=== PATIENT | male | born 1985 | race Caucasian/White ===

== ENCOUNTER 2024-10-13 14:22 | Observation (INO) | payer OTHER, SELFPAY ==
[2024-10-13] VITALS (15 sets, daily range): BP systolic 107–118; BP diastolic 64–95; PULSE 55–87; RESP 14–18; TEMP 36.6–36.8; O2SAT 94–99; BMI 30.4; BMI 29.9
--- NOTE | 2024-10-13 14:25 | EKG12_ITS ---
Test Reason : PALPITATIONS Blood Pressure : */* mmHG Vent. Rate : 83 BPM Atrial Rate : * BPM P-R Int : * ms QRS Dur : 86 ms QT Int : 344 ms P-R-T Axes : * -22 -30 degrees QTcB Int : 404 ms Atrial fibrillation Low voltage QRS Inferior infarct , age undetermined Abnormal ECG No previous ECGs available Confirmed by Israel Hennessy ([id number]), newspaper managing editor IQRA TAVERA ([id number]) on 10/19/2024 5:51:00 AM Referred By: Confirmed By: Israel Hennessy
[2024-10-13 14:50] LABS: Absolute Neutrophil Count 4.6 X10^3/uL (2.0-7.7); Basophil# 0.05 X10^3/uL; Basophil% 0.6 % (0-1); Eosinophil# 0.08 X10^3/uL; Eosinophils% 0.9 % (0-5); Hematocrit 53.5 % (40-54); Lymphocyte % 32.8 % (19-41); Mean Corpuscular Hgb 30.8 pg (27.0-32.0); Mean Corpuscular Volume 90.5 fL (80-94); Mean Platelet Vol. 9.5 fl (6.2-12.0); Monocyte# 1.01 X10^3/uL; Monocyte% 11.8 % (0-10); NRBC Flagged by Analyzer 0 % (0-5); Neutrophil # 4.57 X10^3/uL (2.7-7.7); Neutrophil % 53.7 % (47-70); Platelet Count 285 K/mm3 (150-450); RBC Distribution Width CV 13.3 % (11.6-14.6); RBC Distribution Width SD 44.7 fl (35.1-43.9); Red Blood Count 5.91 M/mm3 (4.6-6.2); White Blood Count 8.5 K/mm3 (4.4-11.0)
[2024-10-13 14:55] LABS: Hemoglobin 18.2 g/dL (13.0-16.5)
--- NOTE | 2024-10-13 15:10 | RAD_ITS ---
PROCEDURE: Chest radiographs REASON FOR EXAM: Chest pain TECHNIQUE: Two views of the chest COMPARISON: None. FINDINGS: Cardiomediastinal silhouette is within normal limits. Lungs are clear. No sizable pneumothorax. RAD/Chest PA and Lateral IMPRESSION: No acute airspace abnormality. Reading Location: [facility]
[2024-10-13 15:17] LABS: Anion Gap 8 (5-15); BUN 23 mg/dL (7-18); BUN/Creat Ratio 19.2 RATIO (10-20); Calcium,Total 9.6 mg/dL (8.5-10.1); Chloride 104 mmol/L (98-107); EST Glomerular Filtration Rate 72 mL/min (>60); Est Glom Filt Rate - Afr Amer 87 mL/min (>60); Estimated Creatinine Clearance 107.08 ml/min; Glucose 124 mg/dL (74-106); Potassium 3.9 mmol/L (3.5-5.1); Sodium Level 140 mmol/L (136-145); Troponin-I HS (w/2H Reflex) 4 pg/mL (3.0-78.0)
--- NOTE | 2024-10-13 15:38 | EDS_ITS ---
HPI History of Present Illness Chief Complaint: Palpitations Informant: patient Onset/Context/Timing Onset: Yesterday Context: Sudden Onset Timing: Continuous Quality: Skipping, sharp Location: Left chest Worsened by: Nothing Relieved by: Nothing Narrative Narrative: Patient presents with irregular heartbeat that began last night. Patient states he got out of a hot tub last night at and felt some palpitations. Patient states he feels like his heart is skipping. Patient states he has occasional sharp pain. Patient states it is over the left side of her chest. Patient states nothing makes it better and nothing makes it worse. Patient admits to some nausea but denies any vomiting. Patient admits to some blurry vision. Patient denies any shortness of breath or cough. Patient denies any lower extremity pain or swelling. PFSH PFSH Medical History Obesity Former tobacco use Medical History no medical history no medical history Home Medications ?Medication ?Instructions ?Recorded ?Last Taken ?Type NK 10/13/24 Unknown History Allergy/AdvReac Type Severity Reaction Status Date / Time No Known Allergies Allergy Verified 10/13/24 14:23 Surgical History no surgical history no surgical history Social History Smoking Status: Former smoker ROS ROS ED Constitutional Constitutional ED: Denies chills or fever(s) Eyes Eyes: Reports blurry vision; Denies change in vision ENT ENT ED: Denies rhinorrhea or sore throat Cardiovascular Cardiovascular: Reports chest pain and palpitations Respiratory/Chest Respiratory/Chest: Denies cough or dyspnea Gastrointestinal Gastrointestinal: Reports nausea; Denies vomiting Genitourinary Genitourinary ED: Denies dysuria or hematuria Musculoskeletal Musculoskeletal: Denies back pain or neck pain Integumentary Denies abscess or rash Neurologic Neurologic: Denies headache(s) or weakness Allergic/Immunologic Allergic/Immunologic ED: Denies mouth swelling or urticaria EXAM Physical Exam Const Vital Signs: 10/13/24 14:23 10/13/24 15:55 10/13/24 15:56 Temperature 97.9 F Temperature Source Temporal Pulse Rate 64 Respiratory Rate 18 Respiratory Effort Normal Non-Labored Blood Pressure 118/90 H Blood Pressure Mean 99 Pulse Ox 99 Oxygen Delivery Method Room Air Room Air 10/13/24 16:15 10/13/24 18:00 10/13/24 19:33 Temperature 98 F Temperature Source Pulse Rate 86 72 74 Respiratory Rate 14 15 18 Respiratory Effort Blood Pressure 112/75 114/85 H 107/68 Blood Pressure Mean 87 96 81 Pulse Ox 96 95 97 Oxygen Delivery Method Positive well nourished and well developed General Appearance ED: well developed and NAD HEENT Reports moist mucous membranes Eyes PERRL and EOMs intact bilaterally Neck supple and no JVD Resp normal respiratory effort and clear to auscultation bilaterally Cardio regular rate Rhythm: abnormal rhythm irregularly irregular GI non-distended Palpation: soft and tender epigastric Neuro oriented x3, CN's II-XII intact bilaterally and no sensory deficits noted Sensorium / Orientation: alert Motor Exam: strength 5/5 throughout Psych mental status grossly normal MDM MDM MDM Narrative Medical decision making narrative: Differential diagnosis includes cardiac dysrhythmia, cardiac ischemia, electrolyte abnormality, pneumonia, bronchitis, hypothyroidism, hyperthyroidism, and anxiety. EKG will be obtained to assess for cardiac dysrhythmia and cardiac ischemia. Chest x-ray will be obtained to assess for pneumonia and bronchitis. CBC will be obtained to assess for leukocytosis or anemia. Basic metabolic profile will be obtained to assess for electrolyte abnormality and renal function. High-sensitivity troponin will be obtained to assess for cardiac ischemia. 2-hour repeat high-sensitivity troponin will be obtained to assess for ongoing cardiac ischemia. TSH will be obtained to assess for hypothyroidism and hyperthyroidism. Lab Data Attestation: I reviewed the patient's lab results. Lab results narrative: CBC was reviewed. Hemoglobin was elevated at 18.2. The remainder was within normal limits. Basic metabolic profile was reviewed and was essentially within normal limits. Initial high-sensitivity troponin was reviewed and was normal at 4. Labs: Laboratory Results - last 24 hr 10/13/24 10/13/24 14:44 16:46 WBC 8.5 RBC 5.91 Hgb 18.2 H* Hct 53.5 MCV 90.5 MCH 30.8 MCHC 34.0 RDW Std Deviation 44.7 H RDW Coeff of Howie 13.3 Plt Count 285 MPV 9.5 Immature Gran % (Auto) 0.200 Neut % (Auto) 53.7 Lymph % (Auto) 32.8 [place] % (Auto) 11.8 H Eos % (Auto) 0.9 Baso % (Auto) 0.6 Absolute Neuts (auto) 4.6 Absolute Lymphs (auto) 2.80 Nucleated RBC % 0 [address] Review May foll Sodium 140 Potassium 3.9 Chloride 104 Carbon Dioxide 27.0 Anion Gap 8 BUN 23 H Creatinine 1.20 Estim Creat Clear Calc 107.08 Est GFR (MDRD) Af Amer 87 Est GFR (MDRD) Non-Af 72 BUN/Creatinine Ratio 19.2 Glucose 124 H Calcium 9.6 Troponin I High Sens 4 4 TSH 1.240 Radiography Chest X-Ray - ED: 2 View, Read by ED Physician, Read by Radiologist and No Acute Disease Diagnostic Testing: Clinical Impression(s) from Imaging Studies Chest X-Ray 10/13/24 15:10 IMPRESSION: No acute airspace abnormality. [facility] and lateral chest x-ray was obtained. There are 2 views. On my independent interpretation, lung silva are clear. There is normal cardiac silhouette. Bony thorax is normal. There is no acute process noted. Radiologist also interpreted the x-ray and agrees. EKG Initial EKG: Attestation: I personally reviewed and interpreted this EKG as follows: Interpretation: Atrial Fibrillation (83) and Non-Specific ST Changes Comments: EKG was obtained. On my independent interpretation, shows atrial fibrillation with a rate of 83. QRS interval was normal 85 ms. QTc interval was normal at 404 ms. There is borderline left axis deviation at -22. There is no acute ST or T wave changes noted. Prior EKG tracings: not available for review Prior: No Prior Management Discussion w/another healthcare provider: Hospitalist Treatment and Re-Evaluation :: Patient was given IV fluids. Patient was advised of his findings. Case was discussed with the hospitalist. She will admit the patient for observation. Patient understood and was agreeable with the plan. All questions were answered. Discharge Plan Triage Chief Complaint: Palpitations ED Provider: Geo Stinson Dx/Rx/DC Orders Clinical Impression: New onset atrial fibrillation, Elevated blood pressure reading, Heart palpitations Prescriptions: No Action NK Primary Care Provider: Care Physician,No Primary Referrals: [facility] Doctor,Out of [Non-Staff] - Print Language: Kinyarwanda Disposition Disposition: [facility] Care [facility]
[2024-10-13] MEDS: 0.9% Normal Saline (1000mL) 1,000 ML 1000 ML IV (15:59)
[2024-10-13 16:47] LABS: Reflex Troponin-HS? (from REC) Y
[2024-10-13 17:41] LABS: Troponin-I HS 4 pg/mL (3.0-78.0)
--- NOTE | 2024-10-13 19:20 | PCM.HP.STD ---
HPI - General General Date of Admission: 10/13/24 Date of Service: 10/13/24 Chief Complaint: Palpitations, chest pain. HPI Narrative The patient is a 39 y/o M w/ PMHx: Former tobacco use, Possible underlying CKD unclear staging who presents to the [facility] ED on 10/13/2024 with palpitations starting the evening prior noting that he had been in the hot tub and felt these irregular heartbeats as though his heart was skipping occasionally with intermittent occasional sharp chest discomfort over primarily the left side of the chest with no improvement or worsening with any activity or rest with some mild nausea without emesis as well as concurrent occasional vision blurring with no dyspnea nor any recent URI type symptoms prompting eventual ED evaluation to be cautious. Patient's and youngest baby are present and she does note that she has recently had increased congestion and postnasal drip in their older child has also been mildly ill. Patient denies any recent URI type symptoms himself. reports that he does not significantly snore or gasp for air in his sleep. He denies any alcohol intake or aggressive caffeine intake. He does incidentally report that he had been having some left-sided primarily pressure/tightness but intermittent sharp stabbing chest discomfort that have been coming and going for several weeks, specifically reporting 6 weeks and that he had a recent cardiac workup that was negative at [facility]. He does state that following this he used an EKG lc on his phone which following the events in the hot tub notify him that he was having irregular heart rhythm. Workup in the ED included T97.9, heart rate 64, BP 118/90, respiratory rate 18, 99% room air with most recent repeat assessment heart rate 72, BP 09/07/1942, respiratory 15, 95% room air, CBC with WBC 8.5, he 1 18.2, platelet 285 without marked shift, BMP with BUN/creatinine 23/1.20, GFR 72, glucose 124, TSH 1.240, troponin 4 with repeat delta 4, chest x-ray with no acute cardiopulmonary findings, EKG with A-fib with nonspecific ST changes with rate of 83 with no acute evidence of ischemia with no previous EKGs for comparison. In the ED patient ministered 1 L normal saline. [facility] Medical History Former tobacco use Medical History no medical history Home Medications ?Medication ?Instructions ?Recorded ?Last Taken ?Type NK 10/13/24 Unknown History Allergy/AdvReac Type Severity Reaction Status Date / Time No Known Allergies Allergy Verified 10/13/24 14:23 Family History (Updated 10/13/24 @ 20:[address] Pamela Feliciano MD) Mother Breast cancer Heart disease Bradycardia Father No problems noted. Surgical History (Updated 10/13/24 @ 20:[address] Pamela Feliciano MD) History of dental surgery Surgical History no surgical history Social History (Updated 10/13/24 @ 20:[address] Pamela Feliciano MD) household members: spouse and children Smoking Status: Former smoker how long ago did patient quit smoking: Quit at age 23, smoked 15 until quit, 1 ppd. alcohol intake: never substance use type: does not use ROS ROS Narrative Admission Review of Systems: CONSTITUTIONAL: No weight loss, fever, chills, + weakness or fatigue. HEENT: Eyes: No visual loss, blurred vision, double vision or yellow sclerae. Ears, Nose, Throat: No hearing loss, sneezing, congestion, runny nose or sore throat. SKIN: No rash or itching, lesions, wounds. CARDIOVASCULAR: + Chest discomfort, palpitations. No edema, orthopnea, syncopal events. RESPIRATORY: No shortness of breath, cough or sputum, wheezing, hemoptysis. GASTROINTESTINAL: No anorexia, nausea, vomiting or diarrhea, abdominal pain, melena, BRBPR. GENITOURINARY: No dysuria, frequency, urgency or retention. NEUROLOGICAL: No headache, dizziness, syncope, paralysis, ataxia, numbness or tingling in the extremities, focal weakness, change in bowel or bladder control, seizure. MUSCULOSKELETAL: + muscle, back pain, joint pain or stiffness. HEMATOLOGIC: No anemia, bleeding or bruising. LYMPHATICS: No enlarged nodes. No history of splenectomy. PSYCHIATRIC: No history of depression or anxiety. ENDOCRINOLOGIC: No reports of sweating, cold or heat intolerance. No polyuria or polydipsia. ALLERGIES: No history of asthma, hives, eczema or rhinitis. Vital Signs Vital Signs Vital Signs: 10/13/24 14:23 10/13/24 15:55 10/13/24 15:56 Temperature 97.9 F Temperature Source Temporal Pulse Rate 64 Respiratory Rate 18 Respiratory Effort Normal Non-Labored Blood Pressure 118/90 H Blood Pressure Mean 99 Pulse Ox 99 Oxygen Delivery Method Room Air Room Air 10/13/24 16:15 10/13/24 18:00 Temperature Temperature Source Pulse Rate 86 72 Respiratory Rate 14 15 Respiratory Effort Blood Pressure 112/75 114/85 H Blood Pressure Mean 87 96 Pulse Ox 96 95 Oxygen Delivery Method Weight Weight: 230 lb 13.184 oz Body Mass Index (BMI) 30.4 Physical Exam Narrative Physical Examination: General: Awake, alert, oriented x 3 and cooperative, seated upright in the ED bed in no apparent distress, currently denies any chest discomfort. Skin: Normal color, normal turgor, no icterus, no cyanosis. HEENT: AT/NC, EOMI, PERRLA, MMM, no carotid bruits or JVD noted. Lungs: CTA bilaterally, moderate effort, mild decrease BL bases, no rales, ronchi or wheezing. Heart: Irregular, bradycardic; no gallop, rub audible. Abdomen: Soft, NTTP, ND, normal BS, no HSM. Extremities: No cyanosis, clubbing, or edema. Neurological: Patient awake, alert, oriented as noted, cognitive function intact; pupils equally reactive to light and accommodation, cranial nerves grossly normal, moving all 4 extremities, no focal deficits, strength preserved. Psychiatric: Affect appears fatigued otherwise normal, no acute evidence of depressive or anxiety feelings. Results Lab / Micro Data 10/13/24 14:44 10/13/24 14:44 Labs: Laboratory Results - last 24 hr 10/13/24 14:44: WBC 8.5, RBC 5.91, Hgb 18.2 H*, Hct 53.5, MCV 90.5, MCH 30.8, MCHC 34.0, RDW Std Deviation 44.7 H, RDW Coeff of Howie 13.3, Plt Count 285, MPV 9.5, Immature Gran % (Auto) 0.200, Neut % (Auto) 53.7, Lymph % (Auto) 32.8, [place] % (Auto) 11.8 H, Eos % (Auto) 0.9, Baso % (Auto) 0.6, Absolute Neuts (auto) 4.6, Absolute Lymphs (auto) 2.80, Nucleated RBC % 0, Diff Path Review May foll, Sodium 140, Potassium 3.9, Chloride 104, Carbon Dioxide 27.0, Anion Gap 8, BUN 23 H, Creatinine 1.20, Estim Creat Clear Calc 107.08, Est GFR (MDRD) Af Amer 87, Est GFR (MDRD) Non-Af 72, BUN/Creatinine Ratio 19.2, Glucose 124 H, Calcium 9.6, Troponin I High Sens 4, TSH 1.240 10/13/24 16:46: Troponin I High Sens 4 Imaging Radiology Impression Chest X-Ray 10/13/24 15:10 IMPRESSION: No acute airspace abnormality. Reading Location: [facility] Assessment & Plan Assessment/Plan (1) Atrial fibrillation: PLAN: Plan The patient is a 39 y/o M w/ PMHx: Former tobacco use, Possible underlying CKD unclear staging who presents to the [facility] ED on 10/13/2024 with palpitations starting the evening prior noting that he had been in the hot tub and felt these irregular heartbeats as though his heart was skipping occasionally with intermittent occasional sharp chest discomfort over primarily the left side of the chest with no improvement or worsening with any activity or rest with some mild nausea without emesis as well as concurrent occasional vision blurring with no dyspnea nor any recent URI type symptoms prompting eventual ED evaluation to be cautious. #1. Paroxysmal atrial fibrillation, new onset, rate controlled: EKG in ED w/ atrial fibrillation rate controlled with no acute evidence of ischemia with no comparison. Will admit to PCU, maintain on telemetry, obtain urine drug screen, will need assessment for sleep apnea with overnight trending pulse ox to be cautious and certainly could be contributing, denies alcohol intake as well as caffeine intake, will obtain COVID/Influenza/RSV panel, will obtain cardiac enzyme serial set, obtain magnesium level, obtain ECHO, obtain TSH level. CHADS scoring low; however, in case patient needs future upcoming cardioversion attempt given symptomatic nature will place on oral NOACs and if converts certainly may opt to de-escalate off or transition to ASA. Records requested from recent [place] cardiac evaluation. #2. Possible underlying renal insufficiency versus underlying chronic kidney disease possibly stage II per GFR trending: Admission BUN/creatinine 23/1.20, GFR 72, no comparison data, will continue to trend CMP to further elucidate. #3. Hyperglycemia, mild: Admission glucose 124, possibly stress response, continue to trend and if further rises low threshold to investigate further. #4. Polycythemia, unclear if chronic: Admission hemoglobin 18.2, no comparison labs available, will repeat CBC in a.m. but may require further evaluation. Patient has smoked but quit at age 23 this is not currently contributing factor. #5. Former tobacco use: Encourage tobacco cessation. #6. DVT prophylaxis: As noted above temporally placing on NOAC in case of future follow-up with cardiology cardioversion needed. Charges/Coding Visit Charges Inpatient E&M: 38153 Init Hosp L2
[2024-10-13 20:30] LABS: D-Dimer Quantitative (DVT/PE) < 0.27 FEU/ug/m (0.27-0.49)
[2024-10-13 20:34] LABS: Amphetamine Urine NEGATIVE (<1000 ng/mL); Barbiturate Urine NEGATIVE (< 200 ng/mL); Benzodiazepine Urine NEGATIVE (< 200 ng/mL); Cocaine Urine NEGATIVE (< 300 ng/mL); Ecstacy Urine NEGATIVE (< 500 ng/mL); Methadone Urine NEGATIVE (< 300 ng/mL); Opiates Urine NEGATIVE (< 300 ng/mL); PCP Urine NEGATIVE (< 25 ng/mL); THC Urine NEGATIVE (< 50 ng/mL); Vista UDS pH Range 5
[2024-10-13] MEDS: APIXABAN 5 MG TABLET PO (23:32)
[2024-10-13 23:47] LABS: Magnesium 2.2 mg/dL (1.6-2.6); Troponin-I HS 5 pg/mL (3.0-78.0)
[2024-10-14 01:39] LABS: Troponin-I HS 3 pg/mL (3.0-78.0)
[2024-10-14 03:52] VITALS: BP 114/73; PULSE 58; RESP 16; TEMP 36.7; O2SAT 98
[2024-10-14 05:47] LABS: Absolute Lymphocyte Count 2.39 X10^3/uL (0.83-4.51); Absolute Neutrophil Count 3.9 X10^3/uL (2.0-7.7); Basophil# 0.03 X10^3/uL; Basophil% 0.4 % (0-1); Eosinophil# 0.11 X10^3/uL; Eosinophils% 1.5 % (0-5); Hematocrit 50.8 % (40-54); Hemoglobin 16.8 g/dL (13.0-16.5); Lymphocyte # 2.39 X10^3/ul (0.83-4.51); Lymphocyte % 32.8 % (19-41); Mean Corp Hgb Conc 33.1 g/dL (32-36); Mean Corpuscular Volume 90.7 fL (80-94); Mean Platelet Vol. 9.6 fl (6.2-12.0); Monocyte# 0.85 X10^3/uL; Monocyte% 11.7 % (0-10); NRBC Flagged by Analyzer 0 % (0-5); Neutrophil # 3.89 X10^3/uL (2.7-7.7); Neutrophil % 53.3 % (47-70); Platelet Count 255 K/mm3 (150-450); RBC Distribution Width CV 13.5 % (11.6-14.6); RBC Distribution Width SD 45.3 fl (35.1-43.9); White Blood Count 7.3 K/mm3 (4.4-11.0)
--- NOTE | 2024-10-14 05:55 | ECHOD_ITS ---
Reason For Study Reason For Study: AFIB Procedure This was a 2D Doppler, Color Flow transthoracic echocardiogram. Exam performed portable in patient room. Left Ventricle Normal size and thickness. Left ventricular systolic function is normal. The left ventricular ejection fraction is 65 %. Right Ventricle Normal right ventricle. Atria The left and right atria are normal. Mitral Valve Trivial mitral valve insufficiency. Tricuspid Valve Trivial tricuspid valve insufficiency. Unable to estimate RV systolic pressure due to insufficient tricuspid regurgitant envelope. Aortic Valve Trisinus/trileaflet aortic valve. Pulmonic Valve The pulmonic valve is not well visualized. Great Vessels The aortic root is not well visualized. Pericardium/Pleural No pericardial effusion. MMode/2D Measurements & Calculations LVIDd: 4.6 cm IVSd: 1.0 cm LVOT diam: 2.0 cm LVIDs: 3.4 cm LVPWd: 1.1 cm LVOT area: 3.2 cm2 FS: 25.8 % LAV(MOD-bp): 39.0 ml LVAd ap4: 28.3 cm2 SV(MOD-sp4): 51.4 ml LAV(MOD-bp) Indexed: 17.2 ml/m2 LVLd ap4: 9.0 cm SI(MOD-sp4): 22.6 ml/m2 LAV(MOD-sp2): 34.6 ml EDV(MOD-sp4): 80.7 ml LAV(MOD-sp4): 37.3 ml EDV(sp4-el): 75.5 ml LVAs ap4: 15.4 cm2 LVLs ap4: 7.5 cm ESV(MOD-sp4): 29.3 ml ESV(sp4-el): 26.7 ml EF(MOD-sp4): 63.7 % EF(sp4-el): 64.6 % SV(sp4-el): 48.8 ml LA A4 area: 15.8 cm2 LA dimension(2D): 3.5 cm RA A4 area: 12.5 cm2 Doppler Measurements & Calculations Ao V2 max: 116.1 cm/sec LV V1 max: 109.2 cm/sec SV(LVOT): 60.8 ml Ao max P.6 mmHg LV V1 max P.8 mmHg Ao V2 mean: 76.5 cm/sec LV V1 mean P.3 mmHg Ao mean P.8 mmHg LV V1 mean: 69.6 cm/sec Ao V2 VTI: 18.0 cm LV V1 VTI: 19.2 cm AV (velocity ratio): 1.1 SUZIE(I,D): 3.4 cm2 SUZIE(V,D): 3.0 cm2 PA V2 max: 114.4 cm/sec PA V2 mean: 85.1 cm/sec ECHO/Echo Complete Interpretation Summary The left ventricular ejection fraction is 65 %. Patient noted to be in atrial fibrillation with rapid ventricular response gerald baker the study Ordering Physician: Pamela Feliciano Referring Physician: MAURICIO PCP Performed By: Kayla Almanzar RCS
[2024-10-14 06:19] LABS: ALB/GLOB Ratio 1.1 RATIO (0.9-2.4); AST(SGOT) 20 U/L (15-37); Alanine Aminotransfer ALT/SGPT 21 U/L (16-61); Albumin, Serum 3.6 g/dL (3.2-5.0); Alkaline Phosphatase 57 U/L (45-117); Anion Gap 9 (5-15); BUN 17 mg/dL (7-18); BUN/Creat Ratio 14.8 RATIO (10-20); Calcium,Total 8.4 mg/dL (8.5-10.1); Chloride 111 mmol/L (98-107); Cholesterol 180 mg/dL (200); Creatinine, Serum 1.15 mg/dL (0.70-1.30); EST Glomerular Filtration Rate 76 mL/min (>60); Est Glom Filt Rate - Afr Amer 92 mL/min (>60); Estimated Creatinine Clearance 110.87 ml/min; Globulin 3.2 g/dL (2.2-4.2); Glucose 138 mg/dL (74-106); High Density Lipoprotein 31 mg/dL; Potassium 3.7 mmol/L (3.5-5.1); Protein, Total 6.8 g/dL (6.4-8.2); Sodium Level 141 mmol/L (136-145); Triglycerides 242 mg/dL; Troponin-I HS 4 pg/mL (3.0-78.0); Very Low Density Lipoprotein 48 mg/dL (5-40)
[2024-10-14] MEDS: APIXABAN 5 MG TABLET PO (08:38)
[2024-10-14 09:40] VITALS: BP 107/80; PULSE 65; RESP 16; TEMP 36.1; O2SAT 97
--- NOTE | 2024-10-14 10:55 | CASEMGMT ---
Social Work SW met with pt as he is listed as self pt. Pt states that he does have an insurance plan through [facility]. Pt denies any financial concerns at this time. MOMO Guevara
--- NOTE | 2024-10-14 14:16 | DCINST_ITS ---
Discharge Instructions Diet Discharge Diet: Low fat / Low cholesterol DC O2, CPAP, BIPAP needs Home O2 Discharge instructions: No Dressing / Incision Discharge Activity: Return to Normal Activity Weight Bearing Status: Weight bearing as tolerated Dressing / Incision Call your doctor if you observe: Fever of 101 or Higher, Shortness of breath, Dizziness, Chest pain and Increased palpitations (irregular heartbeat) Follow Up Care Test Results: Test results from this visit will be discussed in further detail at your follow- up appointment, if applicable. Discharge Plan Admission Admit Date/Time: 10/13/24 19:40 Primary Reason for Your Visit: atrial fibrillation Attending Provider: Gloria Quiles Primary Care Provider: Care Physician,No Primary Consulting Providers: Pamela Feliciano Instructions Patient Instructions: AFib Dc Discharge Orders/Prescriptions Prescriptions: New aspirin 81 mg tablet,delayed release (DR/EC) 81 mg PO DAILY Qty: 30 1RF carvedilol 3.125 mg tablet 3.125 mg PO BID Qty: 60 2RF Rx Instructions: must administer with a meal/food Referrals / Follow Up: Dell Mart MD [Med Staff - Active Staff] - Within 2 Weeks (see to establish care for afib) Elsa Gongora MD [Med Staff - Active Staff] - Within 2 Weeks (see to establish PCP care) Care Physician,No Primary [Primary Care Provider] - [facility] Doctor,Out of [Non-Staff] - Disposition Disposition (needs filled in before D/C Order can be placed): Home, Self Care
[2024-10-14 14:22] LABS: Pathologist Review Reviewed
[2024-10-14 14:45] VITALS: BP 138/75; PULSE 52; RESP 16; TEMP 36.6; O2SAT 98
[2024-10-14] MEDS: Carvedilol 3.125 MG TABLET PO (15:54)
--- NOTE | 2024-10-14 16:58 | CASEMGMT ---
RN CM NOTE: No PCP listed in [facility]. RN CM to room. Pt sitting up in chair. Introduced self and role. Pt states he does have a PCP, Dr Latha Choudhary @ [facility]. Call placed to Stefanie, in registration, to have this added. Pt has been up ad max in room, 6 cl: 24. Tevin DODDN RN CM
--- NOTE | 2024-10-14 17:07 | PN_ITS ---
Subjective Subjective Patient seen and examined. He had no complaints and felt well. Review of systems otherwise negative. Patient's heart rate has been fluctuating and he goes up into the 150s and come down to the 40s. He is asymptomatic. Patient started on carvedilol. Objective Data Objective Data Vital Signs: Vital Signs Temp Pulse Resp BP Pulse Ox O2 Del Method 97.9 F 52 L 16 138/75 H 98 Room Air 10/14/24 14:45 10/14/24 14:45 10/14/24 14:45 10/14/24 14:45 10/14/24 14:45 10/14/24 14:45 Oxygen Delivery Method Room Air Weight: 227 lb Body Mass Index (BMI) 29.9 Intake & Output: Intake and Output for Last 24 Hours 10/12/24 10/13/24 10/14/24 23:59 23:59 23:59 Intake Total 1000 / 1000 Balance 1000 / 1000 Lab / Micro Data 10/14/24 05:28 10/14/24 05:28 Labs: Laboratory Results - last 24 hr 10/13/24 14:44: Diff Path Review Reviewed 10/13/24 16:46: Troponin I High Sens 4 10/13/24 20:03: D-Dimer Quant (PE/DVT) < 0.27 L, Urine Opiates Screen NEGATIVE, Urine Methadone Screen NEGATIVE, Ur Barbiturates Screen NEGATIVE, Ur Phencyclidine Scrn NEGATIVE, Ur Amphetamines Screen NEGATIVE, MDMA (Ecstasy) Screen NEGATIVE, U Benzodiazepines Scrn NEGATIVE, Urine Cocaine Screen NEGATIVE, U Cannabinoids Screen NEGATIVE, Ur Drug Screen Comment 10/13/24 23:17: Magnesium 2.2, Troponin I High Sens 5 10/14/24 01:11: Troponin I High Sens 3 10/14/24 05:28: WBC 7.3, RBC 5.60, Hgb 16.8 H, Hct 50.8, MCV 90.7, MCH 30.0, MCHC 33.1, RDW Std Deviation 45.3 H, RDW Coeff of Howie 13.5, Plt Count 255, MPV 9.6, Immature Gran % (Auto) 0.300, Neut % (Auto) 53.3, Lymph % (Auto) 32.8, [place] % (Auto) 11.7 H, Eos % (Auto) 1.5, Baso % (Auto) 0.4, Absolute Neuts (auto) 3.9, Absolute Lymphs (auto) 2.39, Nucleated RBC % 0, Sodium 141, Potassium 3.7, C hloride 111 H, Carbon Dioxide 21.0, Anion Gap 9, BUN 17, Creatinine 1.15, Estim Creat Clear Calc 110.87, Est GFR (MDRD) Af Amer 92, Est GFR (MDRD) Non-Af 76, BUN/Creatinine Ratio 14.8, Glucose 138 H, Calcium 8.4 L, Total Bilirubin 1.40 H, AST 20, ALT 21, Alkaline Phosphatase 57, Troponin I High Sens 4, Total Protein 6.8, Albumin 3.6, Globulin 3.2, Albumin/Globulin Ratio 1.1, Triglycerides 242 H, Cholesterol 180, LDL Cholesterol 101, VLDL Cholesterol 48 H, HDL Cholesterol 31 L Micro: Microbiology 10/13/24 20:20 Mucosa - Nose SARS-CoV-2, Influenza & RSV (PCR) - Final Radiography Diagnostic Testing: Radiology Impression Echocardiogram 10/14/24 05:55 Interpretation Summary The left ventricular ejection fraction is 65 %. Patient noted to be in atrial fibrillation with rapid ventricular response during the study Ordering Physician: Pamela Feliciano Referring Physician: MAURICIO PCP Performed By: Kayla Almanzar RCS Physical Exam Const alert, oriented x3, no apparent distress and well nourished General Appearance: cooperative and well developed HEENT head/scalp atraumatic, moist oral mucous membranes and oropharynx normal Neck no lymphadenopathy and supple Lymph Lymphatic: no lymphadenopathy noted and no lymphedema noted Resp normal respiratory effort, normal air movement and clear to auscultation bilaterally Cardio S1 normal heart sound, S2 normal heart sound and no murmurs Cardio Narrative: afib, heart rate fluctuates between tachyardia and bradycardia GI normal to inspection, nondistended, normoactive bowel sounds, soft to palpation, non-tender and non-distended Extremity normal capillary refill, no clubbing, cyanosis or edema and no calf tenderness General Extremity: no tenderness to palpation of joints or extremities Skin General Skin Exam: no breakdown Neuro CN's II-XII intact bilaterally, no focal motor deficits and no sensory deficits noted Motor Exam: strength 5/5 throughout and general weakness Psych thought process normal and cooperative Appearance: appropriate Assessment & Plan Assessment/Plan (1) New onset atrial fibrillation: PLAN: Plan #New onset atrial fibrillation * Remains in A-fib. Heart rate fluctuates from the 150s down to the 40s. He is asymptomatic. * He says he has a family history of an arrhythmia with his mother and another first-degree relative having had pacemakers. * TSH is within normal limits. * 2D echo showed EF of 65% with no regional wall motion abnormalities. * Patient on Eliquis. Discussed with Dr. Mart the education and training manager on-call. He is okay with patient following up with him on outpatient basis. Eliquis to be discontinued and patient started on p.o. aspirin 81 mg daily. Patient also started on p.o. carvedilol 3.125 mg twice daily. * Plan was to discharge patient home today but due to the fluctuation in his heart rate, will watch patient overnight and discharge early tomorrow morning if he remains stable. Dr. Mart's PA Carolyn Ramsey will see patient next week in the office. * Keep magnesium more than 2 and potassium more than 4. * Urine tox was negative. #DVT prophylaxis: Tona Beavers SCDs. Charges/Coding Visit Charges Inpatient E&M: 04657 Subs Hosp L2
[2024-10-14 20:53] VITALS: BP 124/78; PULSE 54; RESP 18; TEMP 36.3; O2SAT 96
[2024-10-14 22:20] VITALS: PULSE 52; O2SAT 97
[2024-10-15 02:50] VITALS: BP 107/71; PULSE 64; RESP 16; TEMP 36.6; O2SAT 96
[2024-10-15 06:39] LABS: Absolute Lymphocyte Count 2.27 X10^3/uL (0.83-4.51); Absolute Neutrophil Count 3.6 X10^3/uL (2.0-7.7); Basophil# 0.04 X10^3/uL; Basophil% 0.6 % (0-1); Eosinophil# 0.07 X10^3/uL; Hematocrit 50.7 % (40-54); Hemoglobin 17.5 g/dL (13.0-16.5); Lymphocyte # 2.27 X10^3/ul (0.83-4.51); Lymphocyte % 33.3 % (19-41); Mean Corp Hgb Conc 34.5 g/dL (32-36); Mean Corpuscular Hgb 31.1 pg (27.0-32.0); Mean Corpuscular Volume 90.1 fL (80-94); Mean Platelet Vol. 9.5 fl (6.2-12.0); Monocyte# 0.82 X10^3/uL; NRBC Flagged by Analyzer 0 % (0-5); Neutrophil # 3.58 X10^3/uL (2.7-7.7); Neutrophil % 52.7 % (47-70); Platelet Count 257 K/mm3 (150-450); RBC Distribution Width CV 13.5 % (11.6-14.6); RBC Distribution Width SD 44.4 fl (35.1-43.9); Red Blood Count 5.63 M/mm3 (4.6-6.2); White Blood Count 6.8 K/mm3 (4.4-11.0)
[2024-10-15 07:16] LABS: Anion Gap 7 (5-15); BUN 15 mg/dL (7-18); BUN/Creat Ratio 13.8 RATIO (10-20); Calcium,Total 9.1 mg/dL (8.5-10.1); Chloride 108 mmol/L (98-107); Creatinine, Serum 1.09 mg/dL (0.70-1.30); EST Glomerular Filtration Rate 81 mL/min (>60); Est Glom Filt Rate - Afr Amer 98 mL/min (>60); Estimated Creatinine Clearance 116.97 ml/min; Glucose 118 mg/dL (74-106); Magnesium 2.3 mg/dL (1.6-2.6); Potassium 4.1 mmol/L (3.5-5.1); Sodium Level 139 mmol/L (136-145)
[2024-10-15 08:50] VITALS: BP 103/76; PULSE 52; RESP 16; TEMP 36.6; O2SAT 95
[2024-10-15] MEDS: Aspirin 81 MG TAB.CHEW PO (09:03)
[2024-10-15 09:33] VITALS: O2SAT 97
[2024-10-15 11:34] VITALS: PULSE 77
--- NOTE | 2024-10-15 12:48 | PCM.CONS.C ---
Assessment & Plan Assessment/Plan (1) New onset atrial fibrillation: PLAN: Patient does have a new onset of atrial fibrillation. He did not tolerate Coreg due to low heart rates. Would like to switch this over to metoprolol 12.5 mg twice a day. Will do metoprolol to tartrate. This is shorter acting hopefully this will help with his tacky heart rates. Would also like to start patient on Eliquis even though his [id number] is 0. The plan would be to cardiovert him when he follows up with us in the office in approximately 3 to 4 weeks. After the cardioversion because he had a coronary calcium score of 0 and his echocardiogram demonstrated preserved ejection fraction, atrium are normal in size with no valvular issues would like to refer him to EP for a possible ablation. HPI Consult Data Date of Consult: 10/15/24 HPI Narrative HPI Narrative: LACY GARCIA, is a 39 M who presented to [facility] on October 13, 2024 with palpitations and chest discomfort. His palpitations that started the evening prior after getting out of a hot tub. He did have a Kardia device which demonstrated that he was in atrial fibrillation. He presented to the emergency room for further workup. He states that he had been to his primary care doctor approximately 6 weeks prior with similar concerns. EKG at that time demonstrated a normal sinus rhythm. He had a coronary calcium score which was noted to be 0. Patient is not on any medications at home. He is polycythemic here. He is not aware of his atrial fibrillation at this time. He has not had any worsening shortness of breath. He is active. He does not have any lightheadedness or dizziness. He does not have any lower extremity edema. He did undergo an echocardiogram which demonstrated a preserved ejection fraction with no valvular abnormalities. He was started on carvedilol 3.125 and an aspirin 81 mg daily. It was noted that his heart rate went down into the 20s after he took his carvedilol. We were consulted because of this. [facility] Medical History Former tobacco use Medical History no medical history Home Medications ?Medication ?Instructions ?Recorded ?Last Taken ?Type aspirin 81 mg tablet,delayed 81 mg PO DAILY #30 tabs 10/14/24 Unknown Rx release carvedilol 3.125 mg tablet 3.125 mg PO BID #60 tabs 10/14/24 Unknown Rx Allergy/AdvReac Type Severity Reaction Status Date / Time No Known Allergies Allergy Verified 10/13/24 14:23 Family History (Updated 10/13/24 @ 20:[address] Pamela Feliciano MD) Mother Breast cancer Heart disease Bradycardia Father No problems noted. Surgical History (Updated 10/13/24 @ 20:[address] Pamela Feliciano MD) History of dental surgery Surgical History no surgical history Social History (Updated 10/13/24 @ 20:[address] Pamela Feliciano MD) household members: spouse and children Smoking Status: Former smoker how long ago did patient quit smoking: Quit at age 23, smoked 15 until quit, 1 ppd. alcohol intake: never substance use type: does not use Physical Exam Const alert, oriented x3, no apparent distress and well nourished General Appearance: cooperative and well developed HEENT head/scalp atraumatic, moist oral mucous membranes and oropharynx normal Neck no lymphadenopathy and supple Lymph Lymphatic: no lymphadenopathy noted and no lymphedema noted Resp normal respiratory effort, normal air movement and clear to auscultation bilaterally Cardio S1 normal heart sound, S2 normal heart sound and no murmurs Cardio Narrative: afib, heart rate fluctuates between tachyardia and bradycardia GI normal to inspection, nondistended, normoactive bowel sounds, soft to palpation, non-tender and non-distended Extremity normal capillary refill, no clubbing, cyanosis or edema and no calf tenderness General Extremity: no tenderness to palpation of joints or extremities Skin General Skin Exam: no breakdown Neuro CN's II-XII intact bilaterally, no focal motor deficits and no sensory deficits noted Motor Exam: strength 5/5 throughout and general weakness Psych thought process normal and cooperative Appearance: appropriate Risk Stratification Risk Stratification Applicable: No Charges/Coding Multi Select Codes Visit Charges Office Visit/Consults: 15711 IP Consult L2 Objective Data Vital Signs: Vital Signs Temp Pulse Resp BP Pulse Ox O2 Del Method FiO2 97.9 F 77 16 103/76 97 Room Air 21 10/15/24 08:50 10/15/24 11:34 10/15/24 08:50 10/15/24 08:50 10/15/24 09:33 10/15/24 09:33 10/14/24 22:20 Oxygen Delivery Method Room Air Weight: 227 lb Body Mass Index (BMI) 29.9 Intake & Output: Intake and Output for Last 24 Hours 10/13/24 10/14/24 10/15/24 23:59 23:59 23:59 Intake Total 1000 / 1000 250 / 250 Balance 1000 / 1000 250 / 250 Lab / Micro Data 10/15/24 06:06 10/15/24 06:06 Labs: Laboratory Results - last 24 hr 10/13/24 14:44: Diff Path Review Reviewed 10/15/24 06:06: WBC 6.8, RBC 5.63, Hgb 17.5 H, Hct 50.7, MCV 90.1, MCH 31.1, MCHC 34.5, RDW Std Deviation 44.4 H, RDW Coeff of Howie 13.5, Plt Count 257, MPV 9.5, Immature Gran % (Auto) 0.400, Neut % (Auto) 52.7, Lymph % (Auto) 33.3, [place] % (Auto) 12.0 H, Eos % (Auto) 1.0, Baso % (Auto) 0.6, Absolute Neuts (auto) 3.6, Absolute Lymphs (auto) 2.27, Nucleated RBC % 0, Sodium 139, Potassium 4.1, Chloride 108 H, Carbon Dioxide 23.0, Anion Gap 7, BUN 15, Creatinine 1.09, Estim Creat Clear Calc 116.97, Est GFR (MDRD) Af Amer 98, Est GFR (MDRD) Non-Af 81, BUN/Creatinine Ratio 13.8, Glucose 118 H, Calcium 9.1, Magnesium 2.3 Cardiology Labs/Tests 10/15/24 06:06: WBC 6.8, RBC 5.63, Hgb 17.5 H, Hct 50.7, MCV 90.1, MCH 31.1, MCHC 34.5, Plt Count 257, MPV 9.5, Immature Gran % (Auto) 0.400, Neut % (Auto) 52.7, Lymph % (Auto) 33.3, [place] % (Auto) 12.0 H, Eos % (Auto) 1.0, Baso % (Auto) 0.6, Absolute Neuts (auto) 3.6, Nucleated RBC % 0, Sodium 139, Potassium 4.1, Chloride 108 H, Carbon Dioxide 23.0, Anion Gap 7, BUN 15, Creatinine 1.09, Est GFR (MDRD) Af Amer 98, Est GFR (MDRD) Non-Af 81, BUN/Creatinine Ratio 13.8, Glucose 118 H, Calcium 9.1, Magnesium 2.3 Rhythm: Afib Radiography Diagnostic Testing: Radiology Impression Echocardiogram 10/14/24 05:55 Interpretation Summary The left ventricular ejection fraction is 65 %. Patient noted to be in atrial fibrillation with rapid ventricular response during the study Ordering Physician: Pamela Feliciano Referring Physician: MAURICIO PCP Performed By: Kayla Almanzar RCS
--- NOTE | 2024-10-15 13:35 | DS.PCM_ITS ---
Providers Date of Admission: 10/13/24 Date of Discharge: 10/15/24 Primary Care Physician: Martha Primary Care Phys Consultations 10/15/24 09:52 Consult: Cardiology Routine Consulting Provider: Eileen Anna Reason for Consult: new onset afib with tachy tere syndrome EMERGENT Consult: No MD Notified: Yes Date Notified: 10/15/24 Time Notified: 09:52 Method of Notification: Text Reason For Visit: PAF, NEW ONSET, RATE CONTROLLED Diagnosis Discharge Diagnosis (1) New onset atrial fibrillation: Status: Acute Code(s): I48.91 - Unspecified atrial fibrillation Plan #New onset atrial fibrillation * Remains in A-fib. Heart rate fluctuates from the 150s down to the 40s. He is asymptomatic. * He says he has a family history of an arrhythmia with his mother and another first-degree relative having had pacemakers. * TSH is within normal limits. * 2D echo showed EF of 65% with no regional wall motion abnormalities. * Patient on Eliquis. Discussed with Dr. Mart the diamond assorter on-call. He is okay with patient following up with him on outpatient basis. Eliquis to be discontinued and patient started on p.o. aspirin 81 mg daily. Patient also started on p.o. carvedilol 3.125 mg twice daily. * Plan was to discharge patient home today but due to the fluctuation in his heart rate, will watch patient overnight and discharge early tomorrow morning if he remains stable. Dr. Mart's PA Carolyn Ramsey will see patient next week in the office. * Keep magnesium more than 2 and potassium more than 4. * Urine tox was negative. #DVT prophylaxis: Tona Wick. SCDs. Medications at Discharge Home Medications apixaban 5 mg tablet (Eliquis) 5 mg PO BID #60 tabs 10/15/24 metoprolol tartrate 25 mg tablet 12.5 mg (1/2 x 25 mg) PO BID #30 tabs 10/15/24 Hospital Course Operations None Procedures 2-D Echocardiogram Summary of Care Provided Minutes Spent on Discharge: 55 Hospital Course: Patient is a 39-year-old male with a past medical history as outlined who was admitted via the ED on 10/13/2024 with a complaint of palpitations. He had been in a hot tub and felt he had irregular heart beat with his heart skipping beats. HE had intermittent chest discomfort also. He denied any shortness of breath. He denied any upper respiratory tract symptoms. He denied any alcohol or aggressive caffeine use. He had recently had a cardiac workup done at [facility] which was negative. He said he had an EKG lc on his phone which
--- NOTE | 2024-10-15 13:35 | DCINST_ITS ---
Discharge Instructions Diet Discharge Diet: Low fat / Low cholesterol DC O2, CPAP, BIPAP needs Home O2 Discharge instructions: No Dressing / Incision Discharge Activity: Return to Normal Activity Weight Bearing Status: Weight bearing as tolerated Dressing / Incision Call your doctor if you observe: Fever of 101 or Higher, Shortness of breath, Dizziness, Chest pain and Increased palpitations (irregular heartbeat) Follow Up Care Test Results: Test results from this visit will be discussed in further detail at your follow- up appointment, if applicable. Discharge Plan Admission Admit Date/Time: 10/13/24 19:40 Primary Reason for Your Visit: atrial fibrillation Attending Provider: Gloria Quiles Primary Care Provider: Care Physician,No Primary Consulting Providers: Pamela Feliciano; Eileen Anna Instructions Patient Instructions: AFib Dc Discharge Orders/Prescriptions Prescriptions: New metoprolol tartrate 25 mg tablet 12.5 mg PO BID Qty: 30 2RF Eliquis 5 mg tablet 5 mg PO BID Qty: 60 2RF Referrals / Follow Up: Dell Mart MD [Med Staff - Active Staff] - 11/16/24 10:00 am (see to establish care for afib To See Carolyn PRICE) Elsa Gongora MD [Med Staff - Active Staff] - Within 2 Weeks (see to establish PCP care) Care Physician,No Primary [Primary Care Provider] - [facility] Doctor,Out of [Non-Staff] - Disposition Disposition (needs filled in before D/C Order can be placed): Home, Self Care
--- NOTE | 2024-10-15 13:35 | PCM.DC.SUM ---
Providers Date of Admission: 10/13/24 Date of Discharge: 10/15/24 Primary Care Physician: Martha Primary Care Phys Consultations 10/15/24 09:52 Consult: Cardiology Routine Consulting Provider: Eileen nAna Reason for Consult: new onset afib with tachy tere syndrome EMERGENT Consult: No MD Notified: Yes Date Notified: 10/15/24 Time Notified: 09:52 Method of Notification: Text Reason For Visit: PAF, NEW ONSET, RATE CONTROLLED Diagnosis Discharge Diagnosis (1) New onset atrial fibrillation: Status: Acute Code(s): I48.91 - Unspecified atrial fibrillation Plan #New onset atrial fibrillation Remains in A-fib. Heart rate fluctuates from the 150s down to the 40s. He is asymptomatic. He says he has a family history of an arrhythmia with his mother and another first-degree relative having had pacemakers. TSH is within normal limits. 2D echo showed EF of 65% with no regional wall motion abnormalities. Patient on Eliquis. Discussed with Dr. Mart the preparation room manager on-call. He is okay with patient following up with him on outpatient basis. Eliquis to be discontinued and patient started on p.o. aspirin 81 mg daily. Patient also started on p.o. carvedilol 3.125 mg twice daily. Plan was to discharge patient home today but due to the fluctuation in his heart rate, will watch patient overnight and discharge early tomorrow morning if he remains stable. Dr. Mart's PA Carolyn Ramsey will see patient next week in the office. Keep magnesium more than 2 and potassium more than 4. Urine tox was negative. #DVT prophylaxis: Tona SKAGGS'angie. SCDs. Medications at Discharge Home Medications apixaban 5 mg tablet (Eliquis) 5 mg PO BID #60 tabs 10/15/24 metoprolol tartrate 25 mg tablet 12.5 mg (1/2 x 25 mg) PO BID #30 tabs 10/15/24 Hospital Course Operations None Procedures 2-D Echocardiogram Summary of Care Provided Minutes Spent on Discharge: 55 Hospital Course: Patient is a 39-year-old male with a past medical history as outlined who was admitted via the ED on 10/13/2024 with a complaint of palpitations. He had been in a hot tub and felt he had irregular heart beat with his heart skipping beats. HE had intermittent chest discomfort also. He denied any shortness of breath. He denied any upper respiratory tract symptoms. He denied any alcohol or aggressive caffeine use. He had recently had a cardiac workup done at [facility] which was negative. He said he had an EKG lc on his phone which showed him that he was having an irregular heart rhythm. On admission his heart rate was 72 and he was found to be in A-fib. EKG showed A-fib and TSH was 1.24. Troponins were negative. He was admitted to be managed for new onset A-fib. He fluctuated between bradycardia and tachycardia during his admission with HR going as low as 20s and as high as 160s. He had 2D echo which showed EF of 65% with no regional wall motion abnormalities. He was initially started on carvedilol 3.125mg bid, but his heart rate still fluctuated. His CHADVASC Score was 0. Cardiology was consulted and cardiology recommended that patient be placed on metoprolol 12.5 mg twice daily. They also recommended that patient be placed on eliquis 5mg bid and to be considered for electrical cardioversion after 30 days of anticoagulation. He was discharged home on 10/15/2024. He is to follow up with his PCP and cardiology within 1-2 weeks. Patient seen and examined prior to discharge. He had no active copliants. He had an uneventful night. Review of the systems is otherwise negative. Labs and vitals reviewed. Home meds reivewed and reconciled. Physical Exam Const alert, oriented x3, no apparent distress and well nourished General Appearance: cooperative, comfortable, well kempt and well developed Orientation / Consciousness: awake Exam Limitations: no limitations HEENT head/scalp atraumatic, hearing grossly normal bilaterally, moist oral mucous membranes and oropharynx normal Neck no lymphadenopathy and supple Lymph Lymphatic: no lymphadenopathy noted and no lymphedema noted Resp normal respiratory effort, normal air movement and clear to auscultation bilaterally Cardio S1 normal heart sound, S2 normal heart sound and no murmurs Cardio Narrative: afib, heart rate fluctuates between tachyardia and bradycardia GI normal to inspection, nondistended, normoactive bowel sounds, soft to palpation, non-tender and non-distended Extremity normal to inspection, full ROM, normal capillary refill, no clubbing, cyanosis or edema and no calf tenderness General Extremity: no tenderness to palpation of joints or extremities Skin no rashes or lesions noted General Skin Exam: no breakdown Neuro oriented x3, CN's II-XII intact bilaterally, moves all extremities, no focal motor deficits and no sensory deficits noted Sensorium / Orientation: awake and alert Motor Exam: strength 5/5 throughout and general weakness Psych thought process normal, cooperative and affect normal Appearance: appropriate Weight / BMI Weight Weight: 227 lb Body Mass Index (BMI) 29.9 ABG / Lab / Microbiology Data 10/15/24 06:06 10/15/24 06:06 Laboratory: Laboratory Results - last 24 hr 10/15/24 06:06: WBC 6.8, RBC 5.63, Hgb 17.5 H, Hct 50.7, MCV 90.1, MCH 31.1, MCHC 34.5, RDW Std Deviation 44.4 H, RDW Coeff of Howie 13.5, Plt Count 257, MPV 9.5, Immature Gran % (Auto) 0.400, Neut % (Auto) 52.7, Lymph % (Auto) 33.3, [place] % (Auto) 12.0 H, Eos % (Auto) 1.0, Baso % (Auto) 0.6, Absolute Neuts (auto) 3.6, Absolute Lymphs (auto) 2.27, Nucleated RBC % 0, Sodium 139, Potassium 4.1, Chloride 108 H, Carbon Dioxide 23.0, Anion Gap 7, BUN 15, Creatinine 1.09, Estim Creat Clear Calc 116.97, Est GFR (MDRD) Af Amer 98, Est GFR (MDRD) Non-Af 81, BUN/Creatinine Ratio 13.8, Glucose 118 H, Calcium 9.1, Magnesium 2.3 Microbiology: Microbiology 10/13/24 20:20 Mucosa - Nose SARS-CoV-2, Influenza & RSV (PCR) - Final D/C Instructions Discharge Diet: Low fat / Low cholesterol Discharge Activity: Return to Normal Activity Weight Bearing Status: Weight bearing as tolerated Call your doctor if you observe: Fever of 101 or Higher, Shortness of breath, Dizziness, Chest pain and Increased palpitations (irregular heartbeat) DC O2, CPAP, BIPAP Needs PSN CPAP & BiPAP: BiPAP & CPAP Settings per PSN Fraction of Inspired Oxygen ( 21 10/14/24 22:20 FIO2) Home O2 Discharge instructions: No Meaningful Use Info Meaningful Use Meaningful Use Diagnoses (Choose all that apply): None applicable Ischemic Stroke Statin Dosing Therapy Reference: STATIN DOSE THERAPY REFERENCE: * Patients > 75 years receive moderate or high dose statin therapy. * Patients 75 years or YOUNGER should receive HIGH intensity statin dose unless contraindicated. You will be required to document reason for non-treatment if statin daily dose does not meet guidelines. HIGH DOSE STATIN THERAPY DAILY Atorvastatin > than or = to 40 mg Rosuvastatin > than or = to 20 mg Amlodipine + Atorvastatin > than or = to 2.5/40 mg Ezetimibe + Simvastatin 10/80 mg Simvastatin 80mg Discharge Plan Admission Admit Date/Time: 10/13/24 19:40 Primary Reason for Your Visit: atrial fibrillation Attending Provider: Gloria Quiles Primary Care Provider: Care Physician,No Primary Consulting Providers: Pamela Feliciano; Eileen Anna Instructions Patient Instructions: AFib Dc Discharge Orders/Prescriptions Prescriptions: New metoprolol tartrate 25 mg tablet 12.5 mg PO BID Qty: 30 2RF Eliquis 5 mg tablet 5 mg PO BID Qty: 60 2RF Referrals / Follow Up: Dell Mart MD [Med Staff - Active Staff] - 11/16/24 10:00 am (see to establish care for afib To See Carolyn PRICE) Elsa Gongora MD [Med Staff - Active Staff] - Within 2 Weeks (see to establish PCP care -[place] spoke to patient and he would like to keep his primary care doctor that he currently has. Does not want the appointment with Dr Gongora. ) Care Physician,No Primary [Primary Care Provider] - [facility] Doctor,Out of [Non-Staff] - Disposition Disposition (needs filled in before D/C Order can be placed): Home, Self Care Charges/Coding Visit Charges Inpatient E&M: 47490 Disch Hosp >30min
--- NOTE | 2024-10-15 13:44 | CASEMGMT ---
Patient has order for discharge. Patient is discharging on [place], YINKA LEE called [facility] [employer] and asked to apply 30day free trial card as patient does not have insurance. RN CM in to discuss needs at discharge with patient. Patient updated regarding savings card and Eliquis infomration packet provided to patient. Patient denied furhter needs or concerns at discharge. Patient had no further questions.
[2024-10-15 14:22] VITALS: BP 112/66; PULSE 68; RESP 16; TEMP 36.7; O2SAT 97
== END 2024-10-15 15:36 | disposition home or self-care (01) ==
LOC: ED 19:43 → PCU 22:00
PROVIDERS: Admitting Provider Family Medicine; Emergency Provider Emergency Medicine; Visit Provider Student in an Organized Health Care Education/Training Program
DX: I48.91 Unspecified atrial fibrillation (principal); I49.5 Sick sinus syndrome; Z87.891 Personal history of nicotine dependence; R03.0 Elevated blood-pressure reading, without diagnosis of hypertension; H53.8 Other visual disturbances; D75.1 Secondary polycythemia; R73.9 Hyperglycemia, unspecified
CPT/HCPCS: 36415; 71046; 80048; 80053; 80061; 80307; 83735; 84443; 84484; 85025; 85379; 87631; 93005; 93306; 94762; 96360; 99221; 99285; A4216; G0378